=== PATIENT | male | born 1985 | race Caucasian/White ===

== ENCOUNTER 2023-04-19 09:15 | Outpatient (REF) | payer OTHER, SELFPAY ==
[2023-04-19 10:06] LABS: Influenza A PCR NEGATIVE (Negative); Influenza B PCR NEGATIVE (Negative); Resp Syncy Virus RNA Qual PCR NEGATIVE (Negative); SARS COV2 PCR INHOUSE POSITIVE (Negative)
== END 2023-04-19 09:16 | disposition home or self-care (01) ==
LOC: HO.LAB 09:15
PROVIDERS: Visit Provider Physician Assistant
DX: Z11.52 Encounter for screening for COVID-19 (principal); Z20.822 Contact with and (suspected) exposure to COVID-19; J02.9 Acute pharyngitis, unspecified; B34.9 Viral infection, unspecified
CPT/HCPCS: 0241U; 87651

== ENCOUNTER 2024-08-26 07:33 | Outpatient (AMB) | payer OTHER, SELFPAY ==
--- NOTE | 2024-08-26 07:39 | MHC.PC.OV ---
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 Intake Note: Pt is here today as a New Patient to [facility] Allergies No Known Allergies Allergy (Verified 08/26/24 08:14) Medication List - Last Reconciled 08/26/24 by ELENI Zuleta No Known Home Meds Tobacco use date assessed: 08/26/24 Dental Screening Dental Screen Date: 08/26/24 Did you have a dental visit in the last 12 months?: Yes Did you have a dental problem in the last 6 months where you did not have access to dental care?: No Was dental information given to patient?: Patient has dentist HPI 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 He has a notable family history of colon cancer, as his mother was diagnosed in her late 50s. He reports no symptoms of chest pain, respiratory issues, gastrointestinal discomfort, or changes in bowel habits. Additionally, he denies any psychological concerns including suicidal or homicidal thoughts. The visit is primarily for preventative health screening and to establish baseline health status. Health Maintenance - Discussed the importance of early colon cancer screening due to notable family history. - Referred to gastroenterology for possible early colonoscopy screening. Social History Review of Systems - Cardiovascular: Denies chest pain. - Respiratory: Denies shortness of breath. - Gastrointestinal: Denies abdominal pain, blood in stool, constipation, diarrhea. - Psychological: Denies suicidal ideation, denies homicidal ideation. Physical Exam General: Cooperative, healthy appearing, comfortable, no acute distress and well developed Orientation: Patient oriented x3 Limitations: No limitations Head: Normal to inspection Ears: Hearing grossly normal bilaterally Nose: Normal external nose present Face and sinus: Normal facial exam Eyes: Appearance normal, both eyes and all related structures Neck: Normal visual inspection and Yes full ROM Respiratory: Normal respiratory effort and able to speak in complete sentences. Clear to auscultation bilaterally Cardiovascular: Regular rate and rhythm. Normal S1 and S2 GI: Normal to inspection. Soft to palpation and nontender Skin: No rashes or lesions noted Neuro: Patient oriented x3 Extremities: Normal to inspection Results Plan A gastroenterology referral was made for possible early colonoscopy screening due to his family history of colon cancer. The patient was advised to complete labs and follow up for further assessment. The importance of early screening was emphasized, and the discussion included procedural risks associated with colonoscopy. Discussion Notes I discussed with the patient the importance of considering early colon cancer screening due to his mother's history of the disease. I explained the procedure involved in a colonoscopy and the associated risks and benefits. I advised him to complete the ordered labs soon and provided a referral to gastroenterology for further workup. We discussed routine health maintenance and the significance of monitoring, especially considering his family history. Patient Instructions - Complete the labs as soon as possible. - Follow up with the referred assistant center manager for early colon screening. - Maintain awareness of any new symptoms and report them promptly. [facility] Family History (Updated 08/26/24 @ 08:01 by VINCENZO ZuletaROCKY) Mother Colon cancer Father Substance use disorder Social History Housing: House Patient Tobacco Use Status: Never used Tobacco e-Cigarette/Vaping Use: Never Used service: No Current occupational status: employed Cognitive needs: No Hearing needs: No Vision needs: No Questionnaire PHQ-9 Over the last 2 weeks, how often have you been bothered by any of the following problems? 1. Little interest or pleasure in doing things: not at all 2. Feeling down, depressed, or hopeless: not at all 3. Trouble falling or staying asleep, or sleeping too much: not at all 4. Feeling tired or having little energy: not at all 5. Poor appetite or overeating: not at all 6. Feeling bad about yourself - or that you are a failure or have let yourself or your family down: not at all 7. Trouble concentrating on things, such as reading the newspaper or watching television: not at all 8. Moving or speaking so slowly that other people could have noticed. Or the opposite - being so fidgety or restless that you have been moving around a lot more than usual: not at all 9. Thoughts that you would be better off or of hurting yourself in some way: not at all Total score: 0 Depression Screening Interpretation: Negative Depression Screening Done: Yes 85545 - PHQ-9 Billing: Yes Source: Developed by Drs. Rolf Mike, Jonathan Weems and colleagues, with an educational franklin from [employer]. HADLEY-7 AMB Questionnaire HADLEY-7 Feeling nervous, anxious, or on edge: 0 = Not at all Not being able to stop or control worryin = Not at all Worrying too much about different things: 0 = Not at all Trouble relaxin = Not at all Being so restless that it is hard to sit still: 0 = Not at all Becoming easily annoyed or irritable: 0 = Not at all Feeling afraid as if something awful might happen: 0 = Not at all Total HADLEY-7 score (0-4 normal; 5-9 mild; 10-14 moderate; 15-21 severe): 0 Source: Developed by Drs. Rolf Mike, Jonathan Weems and colleagues, with an educational franklin from [employer]. HADLEY-7 Assessment Billing HADLEY-7 Assessment Tool: HADLEY-7 Assessment 25007 Physical exam (Primary Care) Vital Signs: Last Vital Signs Temp 98.3 F 08/26/24 07:41 Pulse 56 08/26/24 07:41 Resp 16 08/26/24 07:41 BP 128/76 08/26/24 07:41 Pulse Ox 97 08/26/24 07:41 Oxygen Delivery Method Room Air 08/26/24 07:41 BMI result Body Mass Index 28.3 Tobacco/Smoking Status: Tobacco use Status e-Cigarette/Vaping Use Never Used 08/26/24 07:46 PHQ-9: PHQ-9 Score PHQ-9: Total score 0 08/26/24 08:02 Depression Screening Interpretation: Negative Coding Level of Care Code New Pt Prev Care 18-39yr([id number] Diagnoses Physical exam Z00.00 FH: colon cancer in first degree relative <60 years old Z80.0 Additional Codes HADLEY-7 Assessment Billing - HADLEY-7 Assessment Tool: HADLEY-7 Assessment 79200 ([id number]) PHQ-9 - 88770 - PHQ-9 Billing: Yes ([id number]) Assessment & Plan Assessment & Plan (1) Physical exam: Code(s): Z00.00 - Encounter for general adult medical examination without abnormal findings Category: Medical (2) FH: colon cancer in first degree relative <60 years old: Code(s): Z80.0 - Family history of malignant neoplasm of digestive organs Category: Medical Plan . Orders: Orders Comprehensive [place]. Panel Fast Today Z00.00 - Encounter for general adult medical examination without abnormal findings TSH reflex Free T4 Today Z00.00 - Encounter for general adult medical examination without abnormal findings Complete Blood Count Auto Diff Today Z00.00 - Encounter for general adult medical examination without abnormal findings UA CC w/rflx Micro + Cult Today Z00.00 - Encounter for general adult medical examination without abnormal findings Lipid Panel Today Z00.00 - Encounter for general adult medical examination without abnormal findings Referrals Gastroenterology Referral Z80.0 - Family history of malignant neoplasm of digestive organs
[2024-08-26 07:41] VITALS: BP 128/76; PULSE 56; RESP 16; TEMP 36.8; O2SAT 97; BMI 28.3
== END 2024-08-26 08:13 | disposition home or self-care (01) ==
LOC: HO.HMCC 07:33
PROVIDERS: PCP Nurse Practitioner Family; Visit Provider Nurse Practitioner Family
DX: Z00.00 Encounter for general adult medical examination without abnormal findings (principal); Z80.0 Family history of malignant neoplasm of digestive organs

== ENCOUNTER → 2024-08-26 07:33 | Outpatient (BNVA) | payer OTHER, SELFPAY | PROVIDERS: PCP Nurse Practitioner Family; Visit Provider Nurse Practitioner Family | DX: Z00.00 Encounter for general adult medical examination without abnormal findings (principal); Z80.0 Family history of malignant neoplasm of digestive organs | CPT/HCPCS: 96127 ==

== ENCOUNTER 2024-10-20 07:15 | Outpatient (AMB) | payer OTHER, SELFPAY ==
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
== END 2024-10-20 09:08 | disposition home or self-care (01) ==
PROVIDERS: PCP Nurse Practitioner Family; Visit Provider Nurse Practitioner Family
DX: M25.512 Pain in left shoulder (principal); M67.912 Unspecified disorder of synovium and tendon, left shoulder; Z04.2 Encounter for examination and observation following work accident

== ENCOUNTER 2025-02-19 06:49 | Outpatient (AMB) | payer OTHER, SELFPAY ==
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
--- OUTSIDE RECORDS SUMMARY | 2025-02-19 06:51 | XMS_ITS | Encounter Summary ---
Author Organization [facility] Address [address] [place] [address] Care Team Providers Care Hob Grinder Name Role Phone Kirt Tsang MD Primary Care Provider Unavail able Barry Pinto MD Primary Care Provider Unavailab Rolf Dunne DO Primary Care Provider Gabi vailable Encounter Details Date Type Department Care Team Description 04/28/2013 DRAWER LINER/[facility] Report Medical Records [address] [place] [id number] Abstract, Provider Social History Tobacco Use Types Packs/Day Years Used Date Smoking Tobacco: Never Alcohol Use Standard Drinks/Week Comments Yes 0 (1 standard drink = 0.6 oz pur e alcohol) socially Sex Assigned at Date Recorded Not on file documented as of this encounter Plan of Treatment Not on file documented as of this encounter Visit Diagnoses Not on filedocumented in this encounter Care Teams Hob Grinder Relationship Specialty Start Date End Date Kirt Tsang MD PCP - General Internal Medicine 04/15/13 12/11/13 Barry Pinto MD PCP - General Internal Medicine 12/12/13 11/10/20 Rolf Blackwood DO PCP - General Internal Medicine 11/11/20 documented as of this encounter
--- OUTSIDE RECORDS SUMMARY | 2025-02-19 06:51 | XMS_ITS | Encounter Summary ---
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 Report Medical Records [address] [place] [id number] Larry Yee MD Social History Tobacco Use Types Packs/Day Years Used Date Smoking Tobacco: Never Alcohol Use Standard Drinks/Week Comments Yes 0 (1 standard drink = 0.6 oz pur e alcohol) socially Sex Assigned at Date Recorded Not on file documented as of this encounter Plan of Treatment Not on file documented as of this encounter Visit Diagnoses Not on filedocumented in this encounter Care Teams Nurse Companion Relationship Specialty Start Date End Date Kirt Tsang MD PCP - General Internal Medicine 04/15/13 12/11/13 Barry Pinto MD PCP - General Internal Medicine 12/12/13 11/10/20 Rolf Blackwood DO PCP - General Internal Medicine 11/11/20 documented as of this encounter
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
== END 2025-02-19 08:45 | disposition home or self-care (01) ==
LOC: HO.HMCC 06:50
PROVIDERS: PCP Nurse Practitioner Family; Visit Provider Nurse Practitioner Family
DX: S61.237A Puncture wound without foreign body of left little finger without damage to nail, initial encounter (principal); W46.0XXA Contact with hypodermic needle, initial encounter

== ENCOUNTER 2025-02-27 15:21 | Outpatient (AMB) | payer OTHER, SELFPAY ==
[2025-02-27 15:41] VITALS: PULSE 74; O2SAT 99; BMI 29.5
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
--- OUTSIDE RECORDS SUMMARY | 2025-02-28 00:10 | XMS_ITS | Clinical Summary ---
Author Organization [facility] Address [address] [place] [address] Phone Care Team Providers Care Scow Derrick Operator Name Role Phone Rolf Blackwood Primary Care Provider + Allergies No known active allergies Medications bictegravir-emtr icitabine-tenofo vir alafenamide (BIKTARVY) 50-200-25 mg per tablet Take 1 tablet by mouth 1 (one) time each day for 28 days. 28 each 02/04/2025 Active Encounters Date Type Department Care Team Description 02/04/2025 11:15 AM EDT - 02/04/2025 2:19 PM EDT Emergency [facility] Emergency [address] [place] [address] Himanshu Alfaro MD [place], [place], [...] Depression Screening 04/16/2024 COVID-19 Vaccine ( - 2024-2 6 season) 2024 Influenza Vaccine (#1) 2024 Cholesterol [...] [place] LAB HEMETOLOGY METHOD 02/04/2025 1:33 PM [facility] MCH 28.8 27.0 - 32.0 pcg LAB HEMETOLOGY METHOD 02/04/2025 1:33 PM [facility] MCHC 33.0 32.0 - 37.0 g/dL LAB HEMETOLOGY METHOD 02/04/2025 1:33 PM T [facility] RDW 12.3 11.0 - 15.0 % LAB HEMETOLOGY METHOD 02/04/2025 1:33 PM T [facility] Platelets 274 130 - 400 K/mcL LAB HEMETOLOGY METHOD 02/04/2025 1:33 PM [facility] MPV 9.8 7.0 - 11.0 [place] LAB HEMETOLOGY METHOD [facility] 0.0 <1.0 % LAB [facility] METHOD [facility]25 [facility] NR[facility] Absolute 0.00 <0.10 K/mcL LAB HEMETOLOGY METHOD 02/[facility]2025 [facility] Neutrophils Relative 59.3 % LAB HEMETOLOGY [...] ORDERABLES Final Resul t Performing Organization Address [facility] [address] [facility] Co de Phone Number [facility] [address] [place] [address], [place] [phone] * Hepatitis C antibody (02/04/2025 11:34 AM EDT) Hepatitis C Antibody Negative Negative LAB CHEMISTRY METHOD 02/04/2025 3:47 PM EDT [facility] Blood Venous blood specimen / Unknown Venipuncture / Unknown 02/04/2025 11:34 AM EDT 02/04/2025 12:35 PM EDT us Chris Membreno MD LAB BLOOD ORDERABLES Final Resul t Performing Organization Address [facility] de Phone Number [facility] [address] [place] [address], [place] [phone] * HIV 1,2 antibody, p24 antigen with reflex to differentiation (02/04/2025 11:34 AM EDT) Pathologist [facility] HIV Combo AB/AG Negative Negative LAB CHEMISTRY [...] ORDERABLES Final Resul t Performing Organization Address [facility] [address]/[facility] Co de Phone Number [facility] [address] [place] [address], [place] [phone] * Hepatitis B surface antigen with reflex to confirmation (02/04/2025 11:34 AM EDT) Pathologist [facility] Hepatitis B Surface Ag Negative Negative LAB [...] ORDERABLES Final Resul t Performing Organization Address [facility] [address]/ZIP Co de Phone Number [facility] [address] [place] [address], [place] [phone] * Hepatitis B core antibody, total (02/04/2025 11:34 AM EDT) [facility] Hep B Core Total Ab Negative Negative LAB CHEMISTRY METHOD 02/05/2025 12:11 PM EDT [facility] Blood Venous blood specimen / Unknown Venipuncture / Unknown 02/04/2025 11:34 AM EDT 02/04/2025 12:35 PM EDT us Chris Membreno MD LAB BLOOD ORDERABLES Final Resul t Performing Organization Address City/[facility] [address]/ZIP Co de Phone Number [facility] [address] [place] [address], [place] [phone] * (ABNORMAL) Hepatitis B surface antibody (02/04/2025 11:34 AM EDT) [facility] Hepatitis B Surface Ab Positive (A) Negative [...] ORDERABLES Final Resul t Performing Organization Address [facility] [address]/ZIP Co de Phone Number [facility] [address] [place] [address], [place] [phone] * Lipase (02/04/2025 11:34 AM EDT) Lipase 22 13 - 75 unit/L LAB CHEMISTRY METHOD 02/04/2025 1:28 PM EDT [facility] Blood Venous blood specimen / Unknown Venipuncture / Unknown 02/04/2025 11:34 AM EDT 02/04/2025 12:35 PM EDT us Chris Membreno MD LAB BLOOD ORDERABLES Final Resul t Performing Organization Address [facility] [address]/ZIP Co de Phone Number [facility] [address] [place] [address], [place] [phone] * Comprehensive metabolic panel (02/04/2025 11:34 AM [...] mmol/L LAB CHEMISTRY METHOD 02/04/2025 1:28 PM [facility] Anion Gap 6 3 - 11 LAB CHEMISTRY METHOD 02/04/2025 1:28 PM [facility] Glucose 93 70 - 100 mg/dL LAB CHEMISTRY METHOD 02/04/2025 1:28 PM [facility] BUN 16 5 - 25 mg/dL LAB CHEMISTRY METHOD 02/04/2025 1:28 PM [facility] Creatinine 1.08 0.70 - 1.30 mg/dL LAB CHEMISTRY METHOD 02/04/2025 1:28 PM [facility] eGFR 90 >=60 mL/min/1. 73m2 LAB CHEMISTRY METHOD 02/04/2025 1:28 PM [facility] Comment:Calculation based on the Chronic Kidney Disease Epidemiology Collaboration (CKD-EPI) equation refit without adjustment for race. BUN/Creatinine Ratio 14.8 LAB CHEMISTRY METHOD 02/04/2025 1:28 PM [facility] Calcium 9.8 8.5 - 10.5 mg/dL LAB CHEMISTRY METHOD 02/04/2025 1:28 PM [facility] AST (SGOT) 19 10 - 42 unit/L LAB CHEMISTRY METHOD 02/04/2025 1:28 PM [facility] ALT (SGPT) 53 10 - 60 unit/L LAB CHEMISTRY METHOD 02/04/2025 1:28 PM [facility] Alkaline Phosphatase 70 42 - 121 unit/L LAB CHEMISTRY METHOD 02/04/2025 1:28 PM [facility] Total Protein 6.9 6.0 - 8.0 g/dL LAB CHEMISTRY METHOD 02/04/2025 1:28 PM [facility] Albumin 4.2 3.2 - 5.0 g/dL LAB CHEMISTRY METHOD 02/04/2025 1:28 PM [facility] Total Bilirubin 0.6 0.0 - 1.4 mg/dL LAB CHEMISTRY METHOD 02/04/2025 1:28 PM EDT [facility] Blood Venous blood specimen / Unknown Venipuncture / Unknown 02/04/2025 11:34 AM EDT 02/04/2025 12:35 PM EDT us Chris Membreno MD LAB BLOOD ORDERABLES Final Resul t [facility] [address] [place] [address], [place] [phone] from Last 3 Months Insurance [employer] Care Teams Scow Derrick Operator Relationship Specialty Start Date End Date Rolf Blackwood DO [facility] [address] [place] [id number] PCP - General Internal Medicine 11/11/20
== END 2025-02-27 16:15 | disposition home or self-care (01) ==
LOC: HO.HID 15:21
PROVIDERS: PCP Nurse Practitioner Family; Visit Provider Internal Medicine
DX: T14.8XXA Other injury of unspecified body region, initial encounter (principal); W46.0XXA Contact with hypodermic needle, initial encounter
CPT/HCPCS: 99203

== ENCOUNTER → 2025-02-27 15:21 | Outpatient (BNVA) | payer OTHER, SELFPAY | PROVIDERS: PCP Nurse Practitioner Family; Visit Provider Internal Medicine | DX: S61.439A Puncture wound without foreign body of unspecified hand, initial encounter (principal); W46.1XXA Contact with contaminated hypodermic needle, initial encounter | CPT/HCPCS: 99202 ==